=== PATIENT | male | born 2000 | race Caucasian/White ===

== ENCOUNTER 2022-05-20 09:03 | Inpatient (IN) ==
[2022-05-20 09:51] LABS: Appearance Urine Clear (Clear); Bacteria Urine Automated Negative (Negative); Blood Urine Negative (Negative); Color Urine Dark Yellow; Glucose Urine UA Negative (Negative); Ketones Urine 1+ (Negative); Leukocyte Esterase Urine Negative (Negative); Nitrite Urine Negative (Negative); Protein Urine 1+ (Negative); RBC Urine Automated 0-4 /hpf (0-4); Specific Gravity Urine 1.036 (1.000-1.030); Urobilinogen Urine Negative (Negative)
[2022-05-20 09:59] LABS: Bilirubin Urine 1+ (Negative)
[2022-05-20 10:12] LABS: Basophils # (auto) 0.03 K/uL (0-0.2); Basophils % (auto) 0.5 %; Eosinophils % (auto) 1.8 %; Hematocrit (blood only) 44.7 % (40.1-51.0); Hemoglobin 16.1 g/dl (14.0-18.0); Lymphocytes # (auto) 1.99 K/uL (1.2-3.4); Lymphocytes % (auto) 35.2 %; Mean Corpuscular Hemoglobin 32.4 pg (25.0-34.0); Mean Corpuscular Volume 89.9 fL (80.0-100.0); Mean Platelet Volume 11.3 fL (9.4-12.4); Monocytes # (auto) 0.47 K/uL (0.24-0.82); Monocytes % (auto) 8.3 %; Neutrophils # (auto) 3.06 K/uL (1.4-6.5); Neutrophils % (auto) 54.2 %; Platelet Count 181 K/uL (130-400); RDW Coefficient of Variation 11.2 % (11.5-14.5); RDW Standard Deviation 36.8 fL (36.4-46.3); Red Blood Count 4.97 M/uL (4.63-6.08); White Blood Count 5.65 K/ul (4.8-10.8)
[2022-05-20 10:20] LABS: Amphetamines+Metham, Urine Neg (Neg); Barbiturates, Urine Neg (Neg); Benzodiazepine, Urine Neg (Neg); Cocaine, Urine Neg (Neg); MDMA (Ecstacy), Urine Neg (Neg); Methadone, Urine Neg (Neg); Opiate, Urine Neg (Neg); Phencyclidine, Urine Neg (Neg)
[2022-05-20 10:37] LABS: Acetaminophen < 3 ug/ml (10-30); Salicylate < 3.0 mg/dl (3.0-30)
[2022-05-20 10:40] LABS: Albumin Level 4.7 gm/dl (3.4-5.0); BUN Creatinine Ratio 16.7 (10-20); Bilirubin,Total 1.2 mg/dl (0.2-1.0); Calcium 9.6 mg/dl (8.5-10.1); Creatinine Clr Calc Pharmacy 126.8 ml/min; Est GFR (African American) 147.1 ml/min; Est GFR (Non-African American) 126.9 ml/min; Globulin 2.3 gm/dl (2.5-4.0); Potassium 3.8 mmol/L (3.5-5.1)
--- NOTE | 2022-05-20 11:01 | Emergency Department Note ---
Impression & Plan Suicidal ideation ED Provider Note NAME: NORMA BRIGGS AGE: 21 SEX: M : 2000 ARRIVES VIA: [employer] INFORMANT: [Patient][case management] ED PROVIDER(S): [Oli Mcknight MD] CHIEF COMPLAINT: Mental health evaluation HISTORY OF PRESENT ILLNESS: The patient is a 21-year-old male who says that he has been depressed for years. He has never seen a counselor or therapist and is not on medication. Last evening, the patient had a bunch of pills and felt like taking them to end his life. He called the suicide hotline, the police were called and brought him for evaluation. The patient is currently voluntary although a 302 petition was filled out by the police department. The patient denies any new stressors. He states he is stressed with school and feels alone at [facility]. He is not close with his family. Patient has no other complaints concerns at the present time. He is voluntary and willing to be hospitalized for his mental health REVIEW OF SYSTEMS: See HPI for pertinent positives and negatives. A total of ten systems were reviewed and were otherwise negative. PMHx/PSHx: See Below SOCIAL HISTORY: See Below. PHYSICAL EXAM: GENERAL: Patient is in no acute distress. HEENT: No acute trauma, normocephalic atraumatic, mucous membranes moist, no nasal congestion, no scleral icterus. NECK: No stridor, no adenopathy, no meningismus, trachea is midline. LUNGS: Clear to auscultation bilaterally, no wheeze, no rhonchi, breath sounds equal. HEART: Without murmurs gallops or rubs, regular rate and rhythm. ABDOMEN: Soft, nontender, bowel sounds positive, no peritonitis. EXTREMITIES: No cyanosis or edema, full range of motion of all the joints without pain or difficulty, no signs for acute trauma. NEUROLOGIC: Oriented x 3, no acute motor or sensory deficits, no focal weakness. SKIN: No rash, no jaundice, no diaphoresis. Psychiatric: Flat affect, admits to suicidal ideation with a plan to overdose. Currently voluntary and cooperative DIFFERENTIAL DIAGNOSIS: Mood disorder, infection, hypoglycemia, suicidality, psychosis, depression, anxiety, electrolyte abnormalities, cardiac sources, intracerebral event, toxicologic etiology, trauma, neurologic event, as well as other pathologies. EMERGENCY DEPARTMENT COURSE/PROCEDURES: MEDICAL DECISION MAKING: There is no leukocytosis or concerning anemia. There is a normal platelet count. No renal failure or significant electrolyte abnormality. No concerning liver enzyme elevation. The patient appeared to be in a euthyroid state. Urinalysis did not show infection. Urine tox was negative. Alcohol, aspirin and Tylenol levels were basically undetectable. COVID test was negative. The patient was felt medically clear for a psychiatric evaluation. He did have a flat affect on exam. He admitted to some suicidal ideation. The patient was seen by psychiatry case management. He was accepted to this [facility] psychiatric floor, 3 S. The paperwork for his voluntary stay was comp leted and signed. Past Med/Surg History Medical History Depression Social History Smoking Status: Never smoker Preferred Language: Faroese Communication Ability: Effective Diamond Cutter Required: No Beliefs That Will Affect Care: None Feels Safe at Home: Yes Assistive Devices: None Allergies Allergies Allergy/AdvReac Type Severity Reaction Status Date / Time No Known Allergies Allergy Unverified 05/20/22 11:11 Home Meds Home Medications Medication Instructions Recorded Confirmed No Known Home Medications 05/20/22 05/20/22 Results & Data (ED) Vital Signs Vital Signs - 24 hr 05/20/22 09:24 05/20/22 11:10 Temperature 37.1 C Temperature Source Oral Pulse Rate 92 H Pulse Rate [Finger] 86 Respiratory Rate 18 14 Respiratory Effort / Characteristics Non-Labored Spontaneous Respiratory Depth Normal Blood Pressure 125/68 Blood Pressure [Left Arm] 121/58 L Blood Pressure Mean 87 Blood Pressure Mean [Left Arm] 79 Blood Pressure Position Lying Pulse Oximetry 98 97 Oxygen Delivery Method Room Air Room Air Sepsis Recent Fever Within 48 Hours No Sepsis New/Unexplained Change in Mental Status No Sepsis Action Taken by Nursing No Action Required Home Medications Current Medication List: was personally reviewed by me Laboratory Data Attestation: I reviewed the patient's lab results. Result diagrams: 05/20/22 09:56 05/20/22 09:56 Lab Results 05/20/22 05/20/22 05/20/22 Range/Units 09:15 09:15 09:56 WBC 5.65 (4.8-10.8) K/ul RBC 4.97 (4.63-6.08) M/uL Hgb 16.1 (14.0-18.0) g/dl Hct 44.7 (40.1-51.0) % MCV 89.9 (80.0-100.0) fL MCH 32.4 (25.0-34.0) pg MCHC 36.0 (32.0-36.0) g/dL RDW Std Deviation 36.8 (36.4-46.3) fL RDW Coeff of [place] 11.2 L (11.5-14.5) % Plt Count 181 (130-400) K/uL MPV 11.3 (9.4-12.4) fL Immature Gran % (Auto) 0.0 % Neut % (Auto) 54.2 % Lymph % (Auto) 35.2 % [place] % (Auto) 8.3 % Eos % (Auto) 1.8 % Baso % (Auto) 0.5 % Neut # (Auto) 3.06 (1.4-6.5) K/uL Lymph # (Auto) 1.99 (1.2-3.4) K/uL [place] # (Auto) 0.47 (0.24-0.82) K/uL Eos # (Auto) 0.10 (0-0.50) K/uL Baso # (Auto) 0.03 (0-0.2) K/uL Immature Gran # (Auto) 0.00 (0.00-0.02) K/uL Sodium (136-145) mmol/L Potassium (3.5-5.1) mmol/L Chloride (98-107) mmol/L Carbon Dioxide (21-32) mmol/L Anion Gap (3-11) BUN (6-23) mg/dl Creatinine (0.6-1.4) mg/dl Est Cr Clr Drug Dosing ml/min Est GFR ( Amer) ml/min Est GFR (Non-Af Amer) ml/min BUN/Creatinine Ratio (10-20) Glucose (70-99(Fasting)) mg/dl Calcium (8.5-10.1) mg/dl Total Bilirubin (0.2-1.0) mg/dl AST (13-39) U/L ALT (7-52) U/L Alkaline Phosphatase (34-104) U/L Total Protein (6.0-8.3) gm/dl Albumin (3.4-5.0) gm/dl Globulin (2.5-4.0) gm/dl Albumin/Globulin Ratio (0.9-2) TSH (0.300-4.500) uIu/ml Urine Color Dark Yellow Urine Appearance Clear (Clear) Urine pH 6.0 (4.5-7.5) Ur Specific [place] 1.036 H (1.000-1.030) Urine Protein 1+ H (Negative) Urine Glucose (UA) Negative (Negative) Urine Ketones 1+ H (Negative) Urine Blood Negative (Negative) Urine Nitrite Negative (Negative) Urine Bilirubin 1+ H (Negative) Urine Urobilinogen Negative (Negative) Ur Leukocyte Esterase Negative (Negative) Urine WBC (Auto) 1-5 (0-5) /hpf Urine RBC (Auto) 0-4 (0-4) /hpf U Hyaline Cast (Auto) 5-10 H (0-5) /lpf U Epithel Cells (Auto) 10-20 H (0-5) /lpf Urine Bacteria (Auto) Negative (Negative) Salicylates (3.0-30) mg/dl Urine Opiates Screen Neg (Neg) Ur Methadone, Qual Neg (Neg) Acetaminophen (10-30) ug/ml Urine Barbiturates Neg (Neg) Ur Phencyclidine (PCP) Neg (Neg) U Amphetamin/Meth Scrn Neg (Neg) MDMA (Ecstasy) Screen Neg (Neg) U Benzodiazepines Scrn Neg (Neg) Ur Cocaine Metabolite Neg (Neg) U Marijuana (THC) Screen Neg (Neg) Ethyl Alcohol mg/dL (<10.0) mg/dl SARS-CoV-2, RNA, NAAT (NEGATIVE) 05/20/22 05/20/22 05/20/22 Range/Units 09:56 09:56 09:56 WBC (4.8-10.8) K/ul RBC (4.63-6.08) M/uL Hgb (14.0-18.0) g/dl Hct (40.1-51.0) % MCV (80.0-100.0) fL MCH (25.0-34.0) pg MCHC (32.0-36.0) g/dL RDW Std Deviation (36.4-46.3) fL RDW Coeff of [place] (11.5-14.5) % Plt Count (130-400) K/uL MPV (9.4-12.4) fL Immature Gran % (Auto) % Neut % (Auto) % Lymph % (Auto) % [place] % (Auto) % Eos % (Auto) % Baso % (Auto) % Neut # (Auto) (1.4-6.5) K/uL Lymph # (Auto) (1.2-3.4) K/uL [place] # (Auto) (0.24-0.82) K/uL Eos # (Auto) (0-0.50) K/uL Baso # (Auto) (0-0.2) K/uL Immature Gran # (Auto) (0.00-0.02) K/uL Sodium 140 (136-145) mmol/L Potassium 3.8 (3.5-5.1) mmol/L Chloride 105 (98-107) mmol/L Carbon Dioxide 28 (21-32) mmol/L Anion Gap 7 (3-11) BUN 14 (6-23) mg/dl Creatinine 0.84 (0.6-1.4) mg/dl Est Cr Clr Drug Dosing 126.8 ml/min Est GFR ( Amer) 147.1 ml/min Est GFR (Non-Af Amer) 126.9 ml/min BUN/Creatinine Ratio 16.7 (10-20) Glucose 83 (70-99(Fasting)) mg/dl Calcium 9.6 (8.5-10.1) mg/dl Total Bilirubin 1.2 H (0.2-1.0) mg/dl AST 16 (13-39) U/L ALT 20 (7-52) U/L Alkaline Phosphatase 40 (34-104) U/L Total Protein 7.0 (6.0-8.3) gm/dl Albumin 4.7 (3.4-5.0) gm/dl Globulin 2.3 L (2.5-4.0) gm/dl Albumin/Globulin Ratio 2.0 (0.9-2) TSH 3.570 (0.300-4.500) uIu/ml Urine Color Urine Appearance (Clear) Urine pH (4.5-7.5) Ur Specific [place] (1.000-1.030) Urine Protein (Negative) Urine Glucose (UA) (Negative) Urine Ketones (Negative) Urine Blood (Negative) Urine Nitrite (Negative) Urine Bilirubin (Negative) Urine Urobilinogen (Negative) Ur Leukocyte Esterase (Negative) Urine WBC (Auto) (0-5) /hpf Urine RBC (Auto) (0-4) /hpf U Hyaline Cast (Auto) (0-5) /lpf U Epithel Cells (Auto) (0-5) /lpf Urine Bacteria (Auto) (Negative) Salicylates < 3.0 L (3.0-30) mg/dl Urine Opiates Screen (Neg) Ur Methadone, Qual (Neg) Acetaminophen < 3 L (10-30) ug/ml Urine Barbiturates (Neg) Ur Phencyclidine (PCP) (Neg) U Amphetamin/Meth Scrn (Neg) MDMA (Ecstasy) Screen (Neg) U Benzodiazepines Scrn (Neg) Ur Cocaine Metabolite (Neg) U Marijuana (THC) Screen (Neg) Ethyl Alcohol mg/dL (<10.0) mg/dl SARS-CoV-2, RNA, NAAT (NEGATIVE) 05/20/22 05/20/22 Range/Units 09:56 10:06 WBC (4.8-10.8) K/ul RBC (4.63-6.08) M/uL Hgb (14.0-18.0) g/dl Hct (40.1-51.0) % MCV (80.0-100.0) fL MCH (25.0-34.0) pg MCHC (32.0-36.0) g/dL RDW Std Deviation (36.4-46.3) fL RDW Coeff of [place]a (11.5-14.5) % Plt Count (130-400) K/uL MPV (9.4-12.4) fL Immature Gran % (Auto) % Neut % (Auto) % Lymph % (Auto) % [place] % (Auto) % Eos % (Auto) % Baso % (Auto) % Neut # (Auto) (1.4-6.5) K/uL Lymph # (Auto) (1.2-3.4) K/uL [place] # (Auto) (0.24-0.82) K/uL Eos # (Auto) (0-0.50) K/uL Baso # (Auto) (0-0.2) K/uL Immature Gran # (Auto) (0.00-0.02) K/uL Sodium (136-145) mmol/L Potassium (3.5-5.1) mmol/L Chloride (98-107) mmol/L Carbon Dioxide (21-32) mmol/L Anion Gap (3-11) BUN (6-23) mg/dl Creatinine (0.6-1.4) mg/dl Est Cr Clr Drug Dosing ml/min Est GFR ( Amer) ml/min Est GFR (Non-Af Amer) ml/min BUN/Creatinine Ratio (10-20) Glucose (70-99(Fasting)) mg/dl Calcium (8.5-10.1) mg/dl Total Bilirubin (0.2-1.0) mg/dl AST (13-39) U/L ALT (7-52) U/L Alkaline Phosphatase (34-104) U/L Total Protein (6.0-8.3) gm/dl Albumin (3.4-5.0) gm/dl Globulin (2.5-4.0) gm/dl Albumin/Globulin Ratio (0.9-2) TSH (0.300-4.500) uIu/ml Urine Color Urine Appearance (Clear) Urine pH (4.5-7.5) Ur Specific [place] (1.000-1.030) Urine Protein (Negative) Urine Glucose (UA) (Negative) Urine Ketones (Negative) Urine Blood (Negative) Urine Nitrite (Negative) Urine Bilirubin (Negative) Urine Urobilinogen (Negative) Ur Leukocyte Esterase (Negative) Urine WBC (Auto) (0-5) /hpf Urine RBC (Auto) (0-4) /hpf U Hyaline Cast (Auto) (0-5) /lpf U Epithel Cells (Auto) (0-5) /lpf Urine Bacteria (Auto) (Negative) Salicylates (3.0-30) mg/dl Urine Opiates Screen (Neg) Ur Methadone, Qual (Neg) Acetaminophen (10-30) ug/ml Urine Barbiturates (Neg) Ur Phencyclidine (PCP) (Neg) U Amphetamin/Meth Scrn (Neg) MDMA (Ecstasy) Screen (Neg) U Benzodiazepines Scrn (Neg) Ur Cocaine Metabolite (Neg) U Marijuana (THC) Screen (Neg) Ethyl Alcohol mg/dL < 10.0 (<10.0) mg/dl SARS-CoV-2, RNA, NAAT NEGATIVE (NEGATIVE) Discharge Plan Visit Data Chief Complaint: Mental Health Evaluation ED Provider: Oli Mcknight Discharge Problem: Suicidal ideation Patient Disposition: Admitted As Inpatient Condition: Good Discharge Instructions Interventions: ED Discharge Assessment Last Done: 05/20/22 12:13
[2022-05-20] MEDS ORDERED: SODIUM CHLORIDE 0.65% NA SOLN 45 ML (OCEAN) PRN (12:40)
[2022-05-20] MEDS ORDERED: MAGNESIUM HYDROXIDE SUSP 30 ML UDC PO PRN (12:40)
[2022-05-20] MEDS ORDERED: ALUMINUM/MAGNESIUM SUSP 30 ML UDC PO PRN (12:40)
[2022-05-20] MEDS ORDERED: BISMUTH SUBSALICYLATE LIQD 236 ML PO PRN (12:40)
[2022-05-20] MEDS ORDERED: hydrOXYzine HCl 25 MG TAB PO PRN ×2 (12:40)
[2022-05-20] MEDS ORDERED: ACETAMINOPHEN 325 MG TAB PO PRN (12:40)
--- NOTE | 2022-05-21 08:18 | History & Physical ---
Date of Service May 21, 2022 Impression / Recommendations Impression The patient is a 21 year old with no formal psychiatric history who was admitted for depression with SI with plan of overdosing on medication. Diagnostically consistent with major depressive disorder with anxiety as well as likely generalized anxiety disorder and social anxiety disorder. The patient is deemed unstable and requires psychiatric hospitalization for diagnostic clarification, safety and stabilization, medication management and development of further coping skills. Discussed medication treatment options in detail including SSRIs, Wellbutrin, trazodone, mirtazapine, Vistaril. Discussed risks, benefits and alternatives. Patient would like to start and consented to sertraline for MDD, social anxiety and SCOTT. Reviewed side effects including but not limited to: GI, AREVALO, sexual side effects, and counseled on black box warning of potential for emergence of or increased SI and need to let staff know should this occur or should they feel unsafe. Also discussed importance of seeking emergency care following discharge if this side effect occurs in the future. (1) Recurrent severe major depressive disorder with anxiety: (2) Social anxiety disorder: (3) SCOTT (generalized anxiety disorder): Plan 05/21/22: The patient was admitted to the [facility] ([facility] mental health unit) on q15 min checks (behavioral with suicide precautions) for safety. The patient will participate in group, recreational, and milieu therapies and will be offered additional individual and family sessions as clinically appropriate. 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, [employer]op [employer] student Needs: safety and stabilization, medication adjustment, additional coping skills, increased outpatient services Suicide Risk Level Suicide Risk Level: High-Moderate (q15 min suicide checks) (severe depression with SI with plan prior to admission but feels safe in the hospital, able to safety contract and agrees to let nursing/staff know should they develop plan, intent or feel unable to remain safe.) Suicide Risk Level Comments: Risk Factors Assessment Male: Yes Do You Have Access To A Gun?: No Health Problems: No Mental Health Diagnoses: Yes Substance Use Disorders: No Previous Attempt: No Family History of Suicide: No Previous Psychiatric Hospitalization: No Protective Factors Assessment Employed: No Stable Relationships: Yes Psychiatric History Identifying Data JAVED BRIGGS is a 21-year-old man and [employer] student who currently lives on-campus in the dorms, has no formal psychiatric history, and was admitted on 05/20/22 12:08 on a 201 voluntary commitment for SI with plan. Chief Complaint "I don't know". History of Present Illness Javed presents for psychiatric admission for worsening depression and SI with plan of overdosing on his medication in the context of multiple psychosocial stressors including social isolation, difficulty adjusting to [employer] and feeling unsupported by his family. Shy and reserved which has lead to difficulty making friends at [employer]. Academically has been doing "alright" but hasn't felt that he fits in at [employer] and is considering transferring. Struggles to identify things he doesn't like about [employer] but notes that difficulty socializing is one of his concerns. Worries about how his parents would respond to his desire to transfer because he doesn't like conflict. Depression started about 1 month ago and he endorses depressive symptoms including anhedonia (not enjoying cooking, drawing, video games), self-guilt, hopelessness, helplessness, decreased energy, decreased motivation, decreased concentration, decreased sleep (trouble falling and staying asleep getting about ~5-6 hours per night), decreased appetite (not hungry and can't eat as much). He endorses anxiety symptoms all his life including excessive worry, muscle tension, anxiety meeting new people but denies public speaking concerns and denies panic attacks. Reviewed and confirmed history per ED CM from 05/20/22: "Pt brought to the ED by [employer]. Officer Edi completed a petition that reads: Third constitution party report that Gus was going to harm himself with pills. Met with him at residence where he detailed phoning a suicide prevention hotline the previous night. Gus stated he was going to take a bunch of pills to see what happened. He said he wasnt sure if there was enough pills to kill him. He locked the pills (bag containing misc OTC meds) in drawer as directed by hotline worker. Gus advised everything has been building up including school and family issues. Met with patient who verifies PDs report. Pt admits to SI with plan and intent to overdose to end his life. He has been thinking about completing suicide with a plan for approximately one week. 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 He lives in the dorms with a roommate but reports that he has no friends or supports at [employer] and feels isolated and lonely. He states that his grades are not good and he struggles academically. He also reports family stress stating we just arent close. He reports a hx of untreated depression and SI at times, but states he never had a plan or intent before last night. He denies SIB. Pt is from [place] where mom, dad and brother live. He reports that his sleep is not good, having difficulty falling asleep and staying asleep. His appetite is decreased significantly. He states he only eats a half of a meal per day. He denies intentional food restriction. Pt denies D&A use and does not smoke. He denies a hx of trauma/abuse." He is not currently taking any psychiatric medication. Psychiatric ROS notable for no current or history of surinder, psychosis, PTSD, nor eating disorders. Endorses history of self-harming "when I feel anxious or angry" by banging his hand against his knee. Past Psychiatric History Current Psychiatric Diagnosis: Undiagnosed depression Outpatient Services: n/a, in past had family therapist Previous Psych Admissions: n/a Do You Have Access To A Gun?: No History of Previous Suicide Attempt: No Past Medication Trials: none Past Head Trauma/Neuro History History of Concussion/Seizure: No Allergies Allergy/AdvReac Type Severity Reaction Status Date / Time No Known Allergies Allergy Verified 05/21/22 10:02 Home Medications Medication Instructions Recorded Confirmed Type No Known Home Medications 05/20/22 05/20/22 History Family History Family History of: Doesn't Know (maternal grandmother with some type of psychiatric condition but not discussed in family ) Alcohol History Hx of Alcohol Use Over the Past 12 Months: No Smoking Use Have You Smoked or Used Tobacco Products in the Last 30 Days: No Smoking Status: Never smoker Substance History Hx of Prescription Med Misuse Over the Past 12 Months: No Hx of Over the Counter Med Misuse Over the Past 12 Months: No Hx of Inhalent Misuse Over the Past 12 Months: No Hx of Organic Substance Use Over the Past 12 Months: No Hx of Illegal Substances/Street Drug Use Over Past 12 Months: No Problems as a Result of Past Substance Use: None Identified Personal History Living Arrangements: Dorm Childhood: From [place]. Parents are . Has one older brother. Has close friends from [place] he talks to a lot. Hasn't made any friends at [employer]. 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) Marital Status: Single Number Of Children: n/a Beliefs That Will Affect Care: None Current Legal Problems: No Hx Legal Problems: No Hx Traumatic Life Events: No Patient History Medical History Depression Social History Smoking Status: Never smoker Preferred Language: Northern Irish Communication Ability: Effective Gang Vibrator Operator Required: No Beliefs That Will Affect Care: None Feels Safe at Home: Yes Assistive Devices: None Review of Systems Review of Systems: All systems reviewed & are unremarkable except as noted in HPI & below Physical Exam Psychiatric: Orientation: alert and oriented x 3 Apperance: appropriately dressed and appropriately groomed Eye Contact: + poor eye contact Motor Behavior: no abnormal motor movements Speech: + abnormal rate/rhythm/volume of speech (very soft, slightly mumbled ) Affect: + depressed affect and + anxious affect Mood: + depressed mood and + anxious mood Thought Process: goal directed thought process and + concrete thought process Thought Content: reality based without delusions Suicidal Thoughts: denies suicidal plan and denies suicidal intent; + reports suicidal thoughts (intermittent thoughts ) Homicidal Thoughts: denies homicidal thoughts Hallucinations: no auditory hallucinations and no visual hallucinations Cognition: recent memory grossly intact, remote memory grossly intact, attention grossly intact and language grossly intact Estimated Intelligence: consistent with education level Insight: + limited insight Judgement: + fair judgement Vital Signs (Past 24 Hours): Last Vital Signs Temp 36.3 C L 05/21/22 06:49 Pulse 81 05/21/22 06:50 Resp 16 05/21/22 06:49 BP 113/73 05/21/22 06:50 Pulse Ox 100 05/20/22 12:46 O2 Del Method 05/20/22 12:46 Exam Statement: A physical exam was performed in the ED by Dr. Mcknight for the purposes of medical clearance. I accept that physical as correct and adequate for the purposes of the inpatient physical exam. Results & Data (U) Laboratory Results Laboratory Results - last 24 hr 05/20/22 05/20/22 05/20/22 09:15 09:15 09:56 WBC 5.65 RBC 4.97 Hgb 16.1 Hct 44.7 MCV 89.9 MCH 32.4 MCHC 36.0 RDW Std Deviation 36.8 RDW Coeff of Mana 11.2 L Plt Count 181 MPV 11.3 Immature Gran % (Auto) 0.0 Neut % (Auto) 54.2 Lymph % (Auto) 35.2 [place] % (Auto) 8.3 Eos % (Auto) 1.8 Baso % (Auto) 0.5 Neut # (Auto) 3.06 Lymph # (Auto) 1.99 [place] # (Auto) 0.47 Eos # (Auto) 0.10 Baso # (Auto) 0.03 Immature Gran # (Auto) 0.00 Sodium Potassium Chloride Carbon Dioxide Anion Gap BUN Creatinine Est Cr Clr Drug Dosing Est GFR ( Amer) Est GFR (Non-Af Amer) BUN/Creatinine Ratio Glucose Calcium Total Bilirubin AST ALT Alkaline Phosphatase Total Protein Albumin Globulin Albumin/Globulin Ratio TSH Urine Color Dark Yellow Urine Appearance Clear Urine pH 6.0 Ur Specific [place] 1.036 H Urine Protein 1+ H Urine Glucose (UA) Negative Urine Ketones 1+ H Urine Blood Negative Urine Nitrite Negative Urine Bilirubin 1+ H Urine Urobilinogen Negative Ur Leukocyte Esterase Negative Urine WBC (Auto) 1-5 Urine RBC (Auto) 0-4 U Hyaline Cast (Auto) 5-10 H U Epithel Cells (Auto) 10-20 H Urine Bacteria (Auto) Negative Salicylates Urine Opiates Screen Neg Ur Methadone, Qual Neg Acetaminophen Urine Barbiturates Neg Ur Phencyclidine (PCP) Neg U Amphetamin/Meth Scrn Neg MDMA (Ecstasy) Screen Neg U Benzodiazepines Scrn Neg Ur Cocaine Metabolite Neg U Marijuana (THC) Screen Neg Ethyl Alcohol mg/dL SARS-CoV-2, RNA, NAAT 05/20/22 05/20/22 05/20/22 09:56 09:56 09:56 WBC RBC Hgb Hct MCV MCH MCHC RDW Std Deviation RDW Coeff of Mana Plt Count MPV Immature Gran % (Auto) Neut % (Auto) Lymph % (Auto) [place] % (Auto) Eos % (Auto) Baso % (Auto) Neut # (Auto) Lymph # (Auto) [place] # (Auto) Eos # (Auto) Baso # (Auto) Immature Gran # (Auto) Sodium 140 Potassium 3.8 Chloride 105 Carbon Dioxide 28 Anion Gap 7 BUN 14 Creatinine 0.84 Est Cr Clr Drug Dosing 126.8 Est GFR ( Amer) 147.1 Est GFR (Non-Af Amer) 126.9 BUN/Creatinine Ratio 16.7 Glucose 83 Calcium 9.6 Total Bilirubin 1.2 H AST 16 ALT 20 Alkaline Phosphatase 40 Total Protein 7.0 Albumin 4.7 Globulin 2.3 L Albumin/Globulin Ratio 2.0 TSH 3.570 Urine Color Urine Appearance Urine pH Ur Specific Pierre Part Urine Protein Urine Glucose (UA) Urine Ketones Urine Blood Urine Nitrite Urine Bilirubin Urine Urobilinogen Ur Leukocyte Esterase Urine WBC (Auto) Urine RBC (Auto) U Hyaline Cast (Auto) U Epithel Cells (Auto) Urine Bacteria (Auto) Salicylates < 3.0 L Urine Opiates Screen Ur Methadone, Qual Acetaminophen < 3 L Urine Barbiturates Ur Phencyclidine (PCP) U Amphetamin/Meth Scrn MDMA (Ecstasy) Screen U Benzodiazepines Scrn Ur Cocaine Metabolite U Marijuana (THC) Screen Ethyl Alcohol mg/dL SARS-CoV-2, RNA, NAAT 05/20/22 05/20/22 09:56 10:06 WBC RBC Hgb Hct MCV MCH MCHC RDW Std Deviation RDW Coeff of Mana Plt Count MPV Immature Gran % (Auto) Neut % (Auto) Lymph % (Auto) [place] % (Auto) Eos % (Auto) Baso % (Auto) Neut # (Auto) Lymph # (Auto) [place] # (Auto) Eos # (Auto) Baso # (Auto) Immature Gran # (Auto) Sodium Potassium Chloride Carbon Dioxide Anion Gap BUN Creatinine Est Cr Clr Drug Dosing Est GFR ( Amer) Est GFR (Non-Af Amer) BUN/Creatinine Ratio Glucose Calcium Total Bilirubin AST ALT Alkaline Phosphatase Total Protein Albumin Globulin Albumin/Globulin Ratio TSH Urine Color Urine Appearance Urine pH Ur Specific Pierre Part Urine Protein Urine Glucose (UA) Urine Ketones Urine Blood Urine Nitrite Urine Bilirubin Urine Urobilinogen Ur Leukocyte Esterase Urine WBC (Auto) Urine RBC (Auto) U Hyaline Cast (Auto) U Epithel Cells (Auto) Urine Bacteria (Auto) Salicylates Urine Opiates Screen Ur Methadone, Qual Acetaminophen Urine Barbiturates Ur Phencyclidine (PCP) U Amphetamin/Meth Scrn MDMA (Ecstasy) Screen U Benzodiazepines Scrn Ur Cocaine Metabolite U Marijuana (THC) Screen Ethyl Alcohol mg/dL < 10.0 SARS-CoV-2, RNA, NAAT NEGATIVE Current Inpatient Medications Current Inpatient Medications: Current Inpatient Medications Acetaminophen (Acetaminophen 325 Mg Tab) 650 mg PO Q4H PRN PRN Reason: Headache or Minor Fever Stop: 06/19/22 12:39 Al Hydrox/Mg Hydrox/Simethicone (Aluminum/Magnesium Susp 30 Ml Udc) 30 ml PO Q4H PRN PRN Reason: GI Upset Stop: 06/19/22 12:39 Bismuth Subsalicylate (Bismuth Subsalicylate Liqd 236 Ml) 15 ml PO PRN PRN PRN Reason: Loose Stool Stop: 06/19/22 12:39 Hydroxyzine HCl (Hydroxyzine Hcl 25 Mg Tab) 50 mg PO HSZ PRN PRN Reason: Insomnia Stop: 06/19/22 12:39 Hydroxyzine HCl (Hydroxyzine Hcl 25 Mg Tab) 25 mg PO Q4H PRN PRN Reason: Anxiety Stop: 06/19/22 12:39 Magnesium Hydroxide (Magnesium Hydroxide Susp 30 Ml Udc) 30 ml PO DAILY PRN PRN Reason: Constipation Stop: 06/19/22 12:39 Sodium Chloride (Sodium Chloride 0.65% Na Soln 45 Ml ([place])) 1 - 2 sprays NA PRN PRN PRN Reason: Nasal Dryness/Congestion Stop: 06/19/22 12:39
[2022-05-21] MEDS: ESCITALOPRAM OXALATE 10 MG TAB PO SCH (11:38)
[2022-05-22] MEDS: ESCITALOPRAM OXALATE 10 MG TAB PO SCH (08:45)
--- NOTE | 2022-05-22 14:26 | Psychiatric Progress Note ---
Date of Service May 22, 2022 Impression / Recommendations Impression The patient is a 21 year old with no formal psychiatric history who was admitted for depression with SI with plan of overdosing on medication. Diagnostically consistent with major depressive disorder with anxiety as well as likely generalized anxiety disorder and social anxiety disorder. May be high functioning ASD component to presentation. The patient is deemed unstable and requires psychiatric hospitalization for diagnostic clarification, safety and stabilization, medication management and development of further coping skills. 05/22/22: Mood steadily improving, tolerating escitalopram initiation. Consents to starting trazodone to help with insomnia and depression. Reviewed side effects including but not limited to sedation, increased appetite and priapism. (1) Recurrent severe major depressive disorder with anxiety: (2) Social anxiety disorder: (3) SCOTT (generalized anxiety disorder): Plan 05/22/22: Start trazodone 50mg qhs. Continue escitalopram 10mg. 05/21/22: The patient was admitted to the [facility] ([facility] mental health unit) on q15 min checks (behavioral with suicide precautions) for safety. The patient will participate in group, recreational, and milieu therapies and will be offered additional individual and family sessions as clinically appropriate. 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 Needs: safety and stabilization, medication adjustment, additional coping skills, increased outpatient services Suicide Risk Level Suicide Risk Level: Moderate (q15 min suicide checks) (severe depression with SI with plan prior to admission but mood improving, feels safe in the hospital, able to safety contract and agrees to let nursing/staff know should they develop plan, intent or feel unable to remain safe.) Suicide Risk Level Comments: Risk Factors Assessment Male: Yes Do You Have Access To A Gun?: No Health Problems: No Mental Health Diagnoses: Yes Substance Use Disorders: No Previous Attempt: No Family History of Suicide: No Previous Psychiatric Hospitalization: No Protective Factors Assessment Employed: No Stable Relationships: Yes Interval History Identifying Information NORMA BRIGGS is a 21-year-old man and [employer] student who currently lives on-campus in the dorms, has no formal psychiatric history, and was admitted on 05/20/22 12:08 on a 201 voluntary commitment for SI with plan. Chief Complaint "I'm pretty good". Review of Systems Sleep Information Total Hours of Sleep: 5 Sleep Comments: Received Vistaril for sleep at 2348 Meal Information Percent Meal Consumed - Breakfast: 100 Percent Meal Consumed - Lunch: 100 Percent Meal Consumed - Dinner: 95 Subjective Subjective Patient was seen & assessed and interval progress reviewed with treatment team nursing and social work. Attending groups and engaging. Had difficult family meeting, he expressed a lot of anger and frustration toward his parents. He minimizes this a bit later in the day telling me this was due to "I'm slightly defensive and so are my parents" but acknowledges that he has anger due to past issues with feeling that his parents "say the right things but then don't change their behaviors". However, he is looking forward to spending break with them and option for family therapy as part of IOP. Tolerating escitalopram so far without any side effects. Tried Vistaril last night but didn't sleep well. Denies SI feels this has improved because "I'm in a good environment and now I have a plan and I've started medication". Physical Exam Psychiatric Orientation: alert and oriented x 3 Apperance: appropriately dressed and appropriately groomed Eye Contact: good eye contact and + poor eye contact Motor Behavior: no abnormal motor movements Speech: normal rate/rhythm/volume of speech Affect: + depressed affect and + anxious affect Mood: + depressed mood and + anxious mood Thought Process: goal directed thought process and + concrete thought process Thought Content: reality based without delusions Suicidal Thoughts: denies suicidal thoughts, denies suicidal plan and denies suicidal intent Homicidal Thoughts: denies homicidal thoughts Hallucinations: no auditory hallucinations and no visual hallucinations Cognition: recent memory grossly intact, remote memory grossly intact, attention grossly intact and language grossly intact Estimated Intelligence: consistent with education level Insight: + limited insight Judgement: + limited judgement Vital Signs (Past 24 Hours) Last Vital Signs Temp 36.7 C 05/22/22 06:48 Pulse 87 05/22/22 06:49 Resp 16 05/22/22 06:48 BP 115/75 05/22/22 06:49 Pulse Ox 100 05/20/22 12:46 O2 Del Method 05/20/22 12:46 Results & Data (U) Current Inpatient Medications Current Inpatient Medications: Current Inpatient Medications Acetaminophen (Acetaminophen 325 Mg Tab) 650 mg PO Q4H PRN PRN Reason: Headache or Minor Fever Stop: 06/19/22 12:39 Al Hydrox/Mg Hydrox/Simethicone (Aluminum/Magnesium Susp 30 Ml Udc) 30 ml PO Q4H PRN PRN Reason: GI Upset Stop: 06/19/22 12:39 Bismuth Subsalicylate (Bismuth Subsalicylate Liqd 236 Ml) 15 ml PO PRN PRN PRN Reason: Loose Stool Stop: 06/19/22 12:39 Escitalopram Oxalate (Escitalopram Oxalate 10 Mg Tab) 10 mg PO QAM ALIDA Stop: 06/20/22 10:44 Last Admin: 05/22/22 08:45 Dose: 10 mg Hydroxyzine HCl (Hydroxyzine Hcl 25 Mg Tab) 50 mg PO HSZ PRN PRN Reason: Insomnia Stop: 06/19/22 12:39 Last Admin: 05/21/22 23:48 Dose: 50 mg Hydroxyzine HCl (Hydroxyzine Hcl 25 Mg Tab) 25 mg PO Q4H PRN PRN Reason: Anxiety Stop: 06/19/22 12:39 Magnesium Hydroxide (Magnesium Hydroxide Susp 30 Ml Udc) 30 ml PO DAILY PRN PRN Reason: Constipation Stop: 06/19/22 12:39 Sodium Chloride (Sodium Chloride 0.65% Na Soln 45 Ml ([place])) 1 - 2 sprays NA PRN PRN PRN Reason: Nasal Dryness/Congestion Stop: 06/19/22 12:39 Mental Health & Subst Abuse Tx Therapist Name of Therapist: None Medical Staff Assistant Name of Medical Staff Assistant: None Post Discharge Appointments Primary Care Physician Name Of Family Doctor: [facility] Provider Appointment Comment: Please follow up as needed. Contact Information Discharge Discharge Address: [address] [place] [address]
[2022-05-22] MEDS ORDERED: traZODone HCL 50 MG TAB PO SCH (22:00)
[2022-05-23] MEDS: ESCITALOPRAM OXALATE 10 MG TAB PO SCH (09:28)
--- NOTE | 2022-05-23 10:15 | Discharge Summary ---
Date of Service May 23, 2022 History of Present Illness Javed presents for psychiatric admission for worsening depression and SI with plan of overdosing on his medication in the context of multiple psychosocial stressors including social isolation, difficulty adjusting to [employer] and feeling unsupported by his family. Shy and reserved which has lead to difficulty making friends at [employer] [employer]. Academically has been doing "alright" but hasn't felt that he fits in at [employer] and is considering transferring. Struggles to identify things he doesn't like about [employer] but notes that difficulty socializing is one of his concerns. Worries about how his parents would respond to his desire to transfer because he doesn't like conflict. Depression started about 1 month ago and he endorses depressive symptoms including anhedonia (not enjoying cooking, drawing, video games), self-guilt, hopelessness, helplessness, decreased energy, decreased motivation, decreased concentration, decreased sleep (trouble falling and staying asleep getting about ~5-6 hours per night), decreased appetite (not hungry and can't eat as much). He endorses anxiety symptoms all his life including excessive worry, muscle tension, anxiety meeting new people but denies public speaking concerns and denies panic attacks. Reviewed and confirmed history per ED CM from 05/20/22: "Pt brought to the ED by [employer]. Officer Edi completed a petition that reads: Third constitution party report that Gus was going to harm himself with pills. Met with him at residence where he detailed phoning a suicide prevention hotline the previous night. Gus stated he was going to take a bunch of pills to see what happened. He said he wasnt sure if there was enough pills to kill him. He locked the pills (bag containing misc OTC meds) in drawer as directed by hotline worker. Gus advised everything has been building up including school and family issues. Met with patient who verifies PDs report. Pt admits to SI with plan and intent to overdose to end his life. He has been thinking about completing suicide with a plan for approximately one week. 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 He lives in the dorms with a roommate but reports that he has no friends or supports at [employer] and feels isolated and lonely. He states that his grades are not good and he struggles academically. He also reports family stress stating we just arent close. He reports a hx of untreated depression and SI at times, but states he never had a plan or intent before last night. He denies SIB. Pt is from [place] where mom, dad and brother live. He reports that his sleep is not good, having difficulty falling asleep and staying asleep. His appetite is decreased significantly. He states he only eats a half of a meal per day. He denies intentional food restriction. Pt denies D&A use and does not smoke. He denies a hx of trauma/abuse." He is not currently taking any psychiatric medication. Psychiatric ROS notable for no current or history of surinder, psychosis, PTSD, nor eating disorders. Endorses history of self-harming "when I feel anxious or angry" by banging his hand against his knee. Physical Exam Vital Signs (Past 24 Hours) Last Vital Signs Temp 37.1 C 05/23/22 10:07 Pulse 86 05/23/22 10:07 Resp 16 05/23/22 10:07 BP 125/77 05/23/22 10:07 Pulse Ox 100 05/23/22 10:07 O2 Del Method 05/20/22 12:46 See admission H&P and DOD summary. Principal Diagnosis Major Depressive Disorder Psychiatric Data See daily stay summary. In short, patient was engaged with the social/therapeutic milieu of the unit, safety was maintained and the patient was cooperative with care. Medication changes included initiation of escitalopram 10mg qd and trazodone 50mg qhs and they tolerated this well. A family session was held and safety plan was completed prior to discharge. He actively and insightfully participated in safety planning and in discussions about ways to seek support and recognizing warning signs and utilizing coping skills. Reviewed mobile apps that could be used for additional ways to have their safety plan and contacts easily available should thoughts of SI re-emerge in the future. Reviewed importance of seeking emergency care should SI intensify, worsen or should they feel unsafe in the future which they agree to do. On the day of discharge he stated his mood was "good" and remained future- oriented including spending time with his family, seeing his friends, relaxing over Thanksgiving break and engaging in aftercare appointments for intensive outpatient program with [facility] and [employer] student care and advocacy. Day of Discharge Assessment Today the patient voices readiness for discharge. They note improvement in mood and anxiety. They deny thoughts of harm to self or others. Thoughts are organized and they are clinically improved from admission. There is no evidence of psychosis. They improved in the hospital with support and medication adjustments. They agree to take medications as prescribed and keep follow-up appointments. At the time of the discharge they are deemed to be stable and appropriate for outpatient level of care. They are not deemed to be at imminent risk of harm to self or others. They are aware of emergency and crisis services. Knows to call 911 or go to nearest emergency care center if in a crisis which cannot be handled as an outpatient. Transition of Care Transition Of Care Record: was reviewed with the patient Advance Directives Advance Directives Information Provided: Yes Advance Directives: No Mental Health Advance Directive: No Advance Directives on File: No Living Will: No Power of Knockup Worker: No Advance Directives Reason:: Declines as Mental Health Visit. Suicide Risk Level Suicide Risk Level Comments: Acute risk is low given improvement in mood and denial of SI, lack of access to lethal means, improvement in sleep, hopefulness and motivated to engage in IOP for further outpatient treatment. Chronic risk is low to moderate given some non-modifiable risk factors including periods of impulsivity, emotional reactivity, limited social support but also with protective factors including good problem solving, good potential for ongoing development of coping skills, supportive family, close friends, future-oriented, outpatient care in place. Counseled on ways to reduce acute and chronic risk including engaging with outpatient providers, using safety plan if needed, utilizing supports, taking medication, and using coping skills. Modifiable risk factors of SI and depression were addressed during hospitalization through development of new coping skills, family meeting, safety planning, and medication adjustments. Risk Factors Assessment Male: Yes Do You Have Access To A Gun?: No Health Problems: No Mental Health Diagnoses: Yes Substance Use Disorders: No Previous Attempt: No Family History of Suicide: No Previous Psychiatric Hospitalization: No Hopelessness: No Protective Factors Assessment Employed: No Stable Relationships: Yes Supportive Family: Yes Tobacco Cessation at Discharge Tobacco Cessation Medication Prescribed at Discharge: Not Applicable/Non-Smoker Discharge Data Lab Results 05/20/22 05/20/22 05/20/22 09:15 09:15 09:56 WBC 5.65 RBC 4.97 Hgb 16.1 Hct 44.7 MCV 89.9 MCH 32.4 MCHC 36.0 RDW Std Deviation 36.8 RDW Coeff of Mana 11.2 L Plt Count 181 MPV 11.3 Immature Gran % (Auto) 0.0 Neut % (Auto) 54.2 Lymph % (Auto) 35.2 [place] % (Auto) 8.3 Eos % (Auto) 1.8 Baso % (Auto) 0.5 Neut # (Auto) 3.06 Lymph # (Auto) 1.99 [place] # (Auto) 0.47 Eos # (Auto) 0.10 Baso # (Auto) 0.03 Immature Gran # (Auto) 0.00 Sodium Potassium Chloride Carbon Dioxide Anion Gap BUN Creatinine Est Cr Clr Drug Dosing Est GFR ( Amer) Est GFR (Non-Af Amer) BUN/Creatinine Ratio Glucose Calcium Total Bilirubin AST ALT Alkaline Phosphatase Total Protein Albumin Globulin Albumin/Globulin Ratio TSH Urine Color Dark Yellow Urine Appearance Clear Urine pH 6.0 Ur Specific Strawberry 1.036 H Urine Protein 1+ H Urine Glucose (UA) Negative Urine Ketones 1+ H Urine Blood Negative Urine Nitrite Negative Urine Bilirubin 1+ H Urine Urobilinogen Negative Ur Leukocyte Esterase Negative Urine WBC (Auto) 1-5 Urine RBC (Auto) 0-4 U Hyaline Cast (Auto) 5-10 H U Epithel Cells (Auto) 10-20 H Urine Bacteria (Auto) Negative Salicylates Urine Opiates Screen Neg Ur Methadone, Qual Neg Acetaminophen Urine Barbiturates Neg Ur Phencyclidine (PCP) Neg U Amphetamin/Meth Scrn Neg MDMA (Ecstasy) Screen Neg U Benzodiazepines Scrn Neg Ur Cocaine Metabolite Neg U Marijuana (THC) Screen Neg Ethyl Alcohol mg/dL SARS-CoV-2, RNA, NAAT 05/20/22 05/20/22 05/20/22 09:56 09:56 09:56 WBC RBC Hgb Hct MCV MCH MCHC RDW Std Deviation RDW Coeff of Mana Plt Count MPV Immature Gran % (Auto) Neut % (Auto) Lymph % (Auto) [place] % (Auto) Eos % (Auto) Baso % (Auto) Neut # (Auto) Lymph # (Auto) [place] # (Auto) Eos # (Auto) Baso # (Auto) Immature Gran # (Auto) Sodium 140 Potassium 3.8 Chloride 105 Carbon Dioxide 28 Anion Gap 7 BUN 14 Creatinine 0.84 Est Cr Clr Drug Dosing 126.8 Est GFR ( Amer) 147.1 Est GFR (Non-Af Amer) 126.9 BUN/Creatinine Ratio 16.7 Glucose 83 Calcium 9.6 Total Bilirubin 1.2 H AST 16 ALT 20 Alkaline Phosphatase 40 Total Protein 7.0 Albumin 4.7 Globulin 2.3 L Albumin/Globulin Ratio 2.0 TSH 3.570 Urine Color Urine Appearance Urine pH Ur Specific Strawberry Urine Protein Urine Glucose (UA) Urine Ketones Urine Blood Urine Nitrite Urine Bilirubin Urine Urobilinogen Ur Leukocyte Esterase Urine WBC (Auto) Urine RBC (Auto) U Hyaline Cast (Auto) U Epithel Cells (Auto) Urine Bacteria (Auto) Salicylates < 3.0 L Urine Opiates Screen Ur Methadone, Qual Acetaminophen < 3 L Urine Barbiturates Ur Phencyclidine (PCP) U Amphetamin/Meth Scrn MDMA (Ecstasy) Screen U Benzodiazepines Scrn Ur Cocaine Metabolite U Marijuana (THC) Screen Ethyl Alcohol mg/dL SARS-CoV-2, RNA, NAAT 05/20/22 05/20/22 09:56 10:06 WBC RBC Hgb Hct MCV MCH MCHC RDW Std Deviation RDW Coeff of Mana Plt Count MPV Immature Gran % (Auto) Neut % (Auto) Lymph % (Auto) [place] % (Auto) Eos % (Auto) Baso % (Auto) Neut # (Auto) Lymph # (Auto) [place] # (Auto) Eos # (Auto) Baso # (Auto) Immature Gran # (Auto) Sodium Potassium Chloride Carbon Dioxide Anion Gap BUN Creatinine Est Cr Clr Drug Dosing Est GFR ( Amer) Est GFR (Non-Af Amer) BUN/Creatinine Ratio Glucose Calcium Total Bilirubin AST ALT Alkaline Phosphatase Total Protein Albumin Globulin Albumin/Globulin Ratio TSH Urine Color Urine Appearance Urine pH Ur Specific Strawberry Urine Protein Urine Glucose (UA) Urine Ketones Urine Blood Urine Nitrite Urine Bilirubin Urine Urobilinogen Ur Leukocyte Esterase Urine WBC (Auto) Urine RBC (Auto) U Hyaline Cast (Auto) U Epithel Cells (Auto) Urine Bacteria (Auto) Salicylates Urine Opiates Screen Ur Methadone, Qual Acetaminophen Urine Barbiturates Ur Phencyclidine (PCP) U Amphetamin/Meth Scrn MDMA (Ecstasy) Screen U Benzodiazepines Scrn Ur Cocaine Metabolite U Marijuana (THC) Screen Ethyl Alcohol mg/dL < 10.0 SARS-CoV-2, RNA, NAAT NEGATIVE Hospital Course (1) Recurrent severe major depressive disorder with anxiety: (2) Social anxiety disorder: (3) SCOTT (generalized anxiety disorder): Plan 05/23/22: Tolerating trazodone well with improvement in sleep. Continue current medications, ready for discharge. 05/22/22: Start trazodone 50mg qhs. Continue escitalopram 10mg. 05/21/22: The patient was admitted to the [facility] ([facility] mental health unit) on q15 min checks (behavioral with suicide precautions) for safety. The patient will participate in group, recreational, and milieu therapies and will be offered additional individual and family sessions as clinically appropriate. -Start escitalopram 10mg qd -Referral for [facility] Mental Health & Subst Abuse Tx Therapist Name of Therapist: None Gui Developer Name of Gui Developer: None Post Discharge Appointments Primary Care Physician Name Of Family Doctor: [facility] Provider Appointment Comment: Please follow up as needed. Smoking Cessation Counseling Tobacco Cessation Medication Prescribed at Discharge: Not Applicable/Non-Smoker Other #1: [facility] Phone Number of Aftercare Appointment: Aftercare Appointment Comment: Intake will follow-up with you directly to schedule initial assessment. Release of Information Aftercare Appointment: Obtained, Reviewed and Signed Contact Information Discharge Discharge Address: [address] [place] [address] Discharge Plan Discharge Items Patient Disposition: Home - Self-Care Reason For Visit: MDD Discharge Diagnosis: Major Depressive Disorder Condition on Discharge: Good Activity: Resume your previous activity Non-emergency contact: Primary Care Provider Call non-emergency contact if: you have any medication questions and your symptoms worsen Follow-up/Referrals: PCP,NO [Primary Care Provider] - Diet: Regular Addtl Attending Provider Instructions: Optional mobile apps we discussed: -Suicide safety plan -Virtual Hope Box SPECIAL CARE INSTRUCTIONS: 1. Follow through with your scheduled aftercare appointments. If unable to keep an appointment, please call to reschedule. 2. Take your medication only as prescribed. Medication should not be changed or stopped without the approval of your doctor. In the event of worsening symptoms or concerns about side effects, contact your doctor immediately. 3. Utilize new healthy coping skills, anger management skills, and stress management skills learned during your hospitalization. Journal feelings and process them with a support person. Identify stressors or situations that may result in relapse, deterioration or inappropriate behaviors and develop a plan to deal with those issues. 4. If your coping skills are ineffective and you are in crisis, contact your outpatient providers for direction. If unable to reach your providers, please call the [facility] CRISIS LINE AT , go to the [facility] walk-in center at [address], [address], [place], or go to the closest Emergency Room. 5. Avoid alcohol and un-prescribed drugs. 6. You have been provided with the Mental Health Advance Directives Pamphlet for your review. 7. Your condition is stable for discharge to outpatient level of care, but recovery is an ongoing process. Ifthoughts to harm yourself or others return, follow the safety plan developed during your stay. Planning for a safe return home includes securing weapons. Our treatment team recommends weaponsbe removed from the home until your outpatient provider reassesses your progress. In rare cases where the items themselvescannot be removed, guns and ammunitionshould be secured separatelyand keys stored by a reliable personoutside of the home. If you were admitted on an involuntary commitment, the police or other legal authorities may be involved in this process. AFTERCARE APPOINTMENTS: * Please call your insurance company prior to your scheduled appointment to confirm your aftercare providers are covered. Take your insurance information to your appointments. WHO TO CALL AND WHEN: Medical Emergencies: For questions or emergencies related to your hospital stay, please contact the Inpatient Behavioral Health Unit at [phone]. A senior energy market coordinator is on-call 24/01 for the Behavioral Health Unit for emergencies At any time you feel your situation is an emergency, you may also call 911 immediately. Pending Studies at Discharge: No Stand-Alone Forms: My EverCharge, Smoking Cessation Medications and DC Order Prescriptions: New trazodone 50 mg Tablet 50 mg PO HS 30 Days Qty: 30 0RF escitalopram oxalate 10 mg Tablet 10 mg PO QAM 30 Days Qty: 30 0RF No Action No Known Home Medications Discharge Orders: Discharge Order (Routine); Ordered 05/23/22 Ordered By: Cairne Ramirez/Other Patient Handouts: How to Control Your Temper, Journaling for Mental Health, Depression: Tips to Help Yourself, Suicide Warning Signs What To Do, Suicide Recognize Own Warnings, Suicide Warning Signs Recognize Admission Data Admit Date/Time: 05/20/22 12:08 Attending Provider: Carine Terrazas Admit Provider: Carine Terrazas Primary Care Provider: PCP,NO Other Interventions: Discharge Summary Assessment (RN) Last Done: 05/23/22 10:07 PSY Interdisciplinary Discharge Planning Last Done: 05/23/22 10:34 Coding Level of Care Code 00638 D/C day mgmt > 30 min Diagnoses Recurrent severe major depressive disorder with anxiety F33.2; F41.9 Social anxiety disorder F40.10 SCOTT (generalized anxiety disorder) F41.1 Time Spent (min) 35
== END 2022-05-23 11:05 | disposition home or self-care (01) | DRG 885 ==
LOC: ED 09:03 → 3S 12:08
DX: F33.2 Major depressive disorder, recurrent severe without psychotic features; F41.1 Generalized anxiety disorder; R45.851 Suicidal ideations; F40.11 Social phobia, generalized